=== PATIENT | male | born 2000 | race Caucasian/White ===

== ENCOUNTER 2023-05-08 14:15 | Emergency (ER) | payer OTHER ==
[2023-05-08 14:36] VITALS: O2SAT 98
[2023-05-08] MEDS ORDERED: ONDANSETRON 4 MG/2 ML VIAL IVP STA (14:44)
[2023-05-08] MEDS ORDERED: SODIUM CHLORIDE 0.9% 1,000 ML IV STA ×2 (14:44→16:16)
[2023-05-08] MEDS ORDERED: KETOROLAC 15 MG/ML VIAL IVP STA (14:44)
[2023-05-08] MEDS ORDERED: HYDROmorphone 1 MG/ML CARPUJECT IVP STA (14:44)
--- NOTE | 2023-05-08 14:45 | ED Physician Documentation ---
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 1 month ago he developed right flank pain and was seen at [facility]. Per his description he was diagnosed with 5 mm kidney stone and given hydrocodone and Flomax. He had intermittent mild pain since then but today the pain can much more severe in the right flank and right side. It is associated with several episodes of vomiting, hematuria, and a feeling of urinary retention. PD PAST MEDICAL HISTORY - Past Medical History Past Medical History: Yes : Kidney stones - Past Surgical History Past Surgical History: No - Present Medications Home Medications: Ambulatory Orders Medication Instructions Recorded Confirmed HYDROcod/ACETAM 5/325 [[place] 5/325] 1 - 2 tab PO Q6H PRN #15 tablet 05/08/23 Ibuprofen [Motrin] 800 mg PO Q8H PRN #30 tablet 05/08/23 Ondansetron Odt [Zofran] 4 mg TL Q6H PRN #10 tablet 05/08/23 Tamsulosin [Flomax] 0.4 mg PO DAILY #14 cap 05/08/23 - Allergies Allergies/Adverse Reactions: Allergies Allergy/AdvReac Type Severity Reaction Status Date / Time No Known Drug Allergies Allergy Verified 05/08/23 14:36 - Social History Does the pt smoke?: No Smoking Status: Never smoker PD ED PE NORMAL - Vitals Vital signs reviewed: Yes - General General: Alert and oriented X 3, Other (Appears uncomfortable) - Abdomen Abdomen: Normal bowel sounds, Soft, Non tender - Back Back: No CVA TTP - Neuro Neuro: Alert and oriented X 3, Normal speech Results - Vitals Vitals: Vital Signs - 24 hr 05/08/23 05/08/23 14:33 16:33 Temperature 36.5 C Heart Rate 80 76 Respiratory 18 13 Rate Blood Pressure 125/96 H 107/68 O2 Saturation 98 98 Oxygen O2 Source Room air - Labs Labs: Laboratory Tests 05/08/23 05/08/23 05/08/23 14:50 14:54 14:54 WBC 13.7 H RBC 5.08 Hgb 15.2 Hct 43.2 MCV 85.0 MCH 29.9 MCHC 35.2 RDW 11.6 L Plt Count 345 MPV 8.6 Neut # (Auto) 12.3 H Lymph # (Auto) 0.9 L [place] # (Auto) 0.5 Eos # (Auto) 0.0 Baso # (Auto) 0.0 Absolute Nucleated RBC 0.00 Nucleated RBC % 0.0 Sodium 138 Potassium 3.9 Chloride 103 Carbon Dioxide 25 Anion Gap 10.0 BUN 17 Creatinine 1.2 Estimated GFR (MDRD) 74 L Glucose 112 H Calcium 9.9 Urine Color LT RED Urine Clarity CLOUDY Urine pH 5.5 Ur Specific Severance >=1.030 H Urine Protein 100 H Urine Glucose (UA) 100 H Urine Ketones TRACE Urine Occult Blood LARGE H Urine Nitrite POSITIVE H Urine Bilirubin NEGATIVE Urine Urobilinogen 1 (NORMAL) Ur Leukocyte Esterase NEGATIVE Urine RBC Urine WBC Ur Squamous Epith Cells Amorphous Sediment Urine Bacteria Urine Mucus Ur Microscopic Review NOT INDICATED Urine Culture Comments NOT INDICATED 05/08/23 17:16 WBC RBC Hgb Hct MCV MCH MCHC RDW Plt Count MPV Neut # (Auto) Lymph # (Auto) [place] # (Auto) Eos # (Auto) Baso # (Auto) Absolute Nucleated RBC Nucleated RBC % Sodium Potassium Chloride Carbon Dioxide Anion Gap BUN Creatinine Estimated GFR (MDRD) Glucose Calcium Urine Color DARK YELLOW Urine Clarity HAZY Urine pH 6.0 Ur Specific Severance 1.020 Urine Protein 30 H Urine Glucose (UA) NEGATIVE Urine Ketones TRACE Urine Occult Blood LARGE H Urine Nitrite NEGATIVE Urine Bilirubin SMALL H Urine Urobilinogen 1 (NORMAL) Ur Leukocyte Esterase NEGATIVE Urine RBC TNTC H Urine WBC 6-10 H Ur Squamous Epith Cells FEW Squamous Amorphous Sediment Few Urine Bacteria Few Urine Mucus Marked Strands Ur Microscopic Review INDICATED Urine Culture Comments NOT INDICATED - Rads (name of study) 1v kub Relevant Findings:: Final report received, EMP independent interpretation of test PD Medical Decision Making - ED course Complexity details: reviewed old records (Records from [facility] from April 12 received and reviewed. Labs demonstrating, hematuria mild elevation of creatinine at 1.3, and a CT showing a 5 mm proximal right ureteral stone with mild hydroureteronephrosis.) ED course: 23-year-old gentleman with known 5 mm kidney stone for a month ago started having pain again today. He was in a lot of pain but was much better after the administration of IV Dilaudid, Toradol, and Zofran as well as fluids. He did have a white count of 13,000 and initial urinalysis they could only do the dip due to QNS and has nitrate in it. They were not able to do microscopy. He received several liters of IV fluids and oral fluids and eventually was able to produce a better urine sample which really did not have signs of infection, only expected hematuria. He appears well, has no fever, I do not think he has a UTI. We were not able to see the stone on x-ray but that does not change the diagnosis significantly. Departure - Departure Disposition: 01 Home, Self Care Clinical Impression: Renal colic Condition: Good Record reviewed to determine appropriate education?: Yes Instructions: ED Stone Renal W Colic Follow-Up: Edi Adorno MD [Provider Admit Priv/Credential] - Prescriptions: Tamsulosin [Flomax] 0.4 mg PO DAILY #14 cap Ibuprofen [Motrin] 800 mg PO Q8H PRN #30 tablet PRN Reason: PAIN &/OR FEVER HYDROcod/ACETAM 5/325 [[place] 5/325] 1 - 2 tab PO Q6H PRN #15 tablet PRN Reason: Pain Ondansetron Odt [Zofran] 4 mg TL Q6H PRN #10 tablet PRN Reason: Nausea / Vomiting Comments: You were seen today for continued pain from probably the same kidney stone that was bothering you a month ago when he went to [facility]. I strongly recommend that you follow-up with a urologist. 1 is listed on this form. That said you will probably need to get the formal [place] them tomorrow to let them know you are still having trouble. Return for new or worsening symptoms. Drink plenty of fluids. I am prescribing a short course of narcotic pain medication for you. These are potentially dangerous and addictive medications that should be used carefully. These medications may constipate you. Take an [id number] stool softener (docusate) twice daily with plenty of water while taking these medications. If you go 24 hours without a bowel movement, take [id number] miralax, per package instructions. Do not drink or drive while taking these medications. If you received narcotic or sedating medications while in the emergency department, do not drive for 24 hours. Store this medication in a safe, secure place and out of reach of children. It is a violation of federal law to give or sell this medication to another person or to use in a manner other than prescribed. The ED will not refill narcotic prescriptions, including prescriptions lost or stolen. To dispose of unwanted medications: 1. [facility] provides a drop box for medication in pill form only (no liquids) 8:00 am to 4:30 p.m. Monday-Monday in the lobby of the [facility], [address] [place] [address]. Empty pills into ziplock bag before disposal. Call [phone] for information. 2.[employer] is a free service available to all [facility] residents. Go to [email or web address] Note that many narcotic pain relievers also contain Tylenol/acetaminophen. Please ensure that your total dose of acetaminophen from all sources does not exceed 3 g (3000 mg) per day. Forms: PCP List
[2023-05-08 15:00] LABS: BASOPHILS % (AUTO) 0.1 %; HCT - HEMATOCRIT 43.2 % (42.0-52.0); HGB - HEMOGLOBIN 15.2 g/dL (14.0-18.0); LYMPHOCYTES # (AUTO) 0.9 10^3/uL (1.5-3.5); LYMPHOCYTES % (AUTO) 6.4 %; MEAN CORPUSCULAR HEMOGLOBIN 29.9 pg (27.0-31.0); MEAN CORPUSCULAR HGB CONC 35.2 g/dL (32.0-36.0); MEAN PLATELET VOLUME 8.6 fL (7.4-11.4); MONOCYTES # (AUTO) 0.5 10^3/uL (0.0-1.0); MONOCYTES % (AUTO) 3.3 %; NEUTROPHILS # (AUTO) 12.3 10^3/uL (1.5-6.6); NEUTROPHILS % (AUTO) 89.8 %; PLT - PLATELET COUNT 345 10^3/uL (130-450); RED BLOOD COUNT 5.08 10^6/uL (4.70-6.10); RED CELL DISTRIBUTION WIDTH 11.6 % (12.0-15.0); WHITE BLOOD COUNT 13.7 x10^3/uL (4.8-10.8)
[2023-05-08 15:02] LABS: BILIRUBIN,URINE NEGATIVE (NEGATIVE); GLUCOSE, URINE (UA) 100 mg/dL (NEGATIVE); KETONES,URINE (UA) TRACE mg/dL (NEGATIVE); LEUKOCYTE ESTERASE, URINE NEGATIVE (NEGATIVE); NITRITE,URINE POSITIVE (NEGATIVE); OCCULT BLOOD,URINE LARGE (NEGATIVE); PH,URINE 5.5 PH (5.0-7.5); PROTEIN,URINE 100 mg/dL (NEGATIVE); UROBILINOGEN,URINE 1 (NORMAL) E.U./dL (NORMAL)
[2023-05-08 15:03] LABS: CLARITY,URINE CLOUDY (CLEAR)
[2023-05-08 15:13] LABS: CALCIUM 9.9 mg/dL (8.5-10.3); CREATININE 1.2 mg/dL (0.6-1.3); POTASSIUM 3.9 mmol/L (3.5-4.5)
--- NOTE | 2023-05-08 15:15 | XRAY Report ---
PROCEDURE: Abdomen 1 View X-Ray INDICATIONS: R renal colic (5mm on CT 1 mo ago) TECHNIQUE: One view of the abdomen acquired. COMPARISON: None. FINDINGS: Surgical changes and devices: None. Bowel: Bowel gas pattern is normal. Soft tissues: No suspicious abdominal calcifications. Visualized solid organ contours appear normal in size. Visualized lung bases are clear. Bones: No suspicious bony lesions. IMPRESSION: No acute abdominal pathology. Specifically, no radiographic evidence of nephrolithiasis. Reviewed by: Coreen Santiago MD on 05/08/2023 3:13 PM PST Approved by: Coreen Santiago MD on 05/08/2023 3:13 PM PST Station ID: [id number]
[2023-05-08 16:39] VITALS: BP 107/68
[2023-05-08 17:24] LABS: BILIRUBIN,URINE SMALL (NEGATIVE); GLUCOSE, URINE (UA) NEGATIVE (NEGATIVE); KETONES,URINE (UA) TRACE mg/dL (NEGATIVE); LEUKOCYTE ESTERASE, URINE NEGATIVE (NEGATIVE); NITRITE,URINE NEGATIVE (NEGATIVE); OCCULT BLOOD,URINE LARGE (NEGATIVE); PROTEIN,URINE 30 mg/dL (NEGATIVE); UROBILINOGEN,URINE 1 (NORMAL) E.U./dL (NORMAL)
[2023-05-08 17:31] LABS: CLARITY,URINE HAZY (CLEAR)
[2023-05-08 17:39] LABS: AMORPHOUS SEDIMENT,UR Few /LPF; BACTERIA,URINE Few /HPF (None Seen); MUCUS,URINE Marked Strands; RBC,URINE TNTC /HPF (0-5); SQUAMOUS EPITHELIAL CELL,UR FEW Squamous (<= Few)
== END 2023-05-08 17:53 | disposition home or self-care (01) ==
LOC: ED 14:15
DX: N13.2 Hydronephrosis with renal and ureteral calculous obstruction (principal)
CPT/HCPCS: 36415; 51798; 74018; 80048; 81001; 81003; 85025; 96374; 96375; 99284; J1170; 87086